=== PATIENT | female | born 1960 | race Caucasian/White ===

== ENCOUNTER 2021-12-28 01:47 | Emergency (ER) | payer OTHER ==
[~2021-12-28] VITALS: Ht 162.6 cm; Wt 88.5 kg
[2021-12-28 02:26] LABS: BASOPHILS ABSOLUTE AUTO 0.02 K/mm3 (0.00-0.23); BASOPHILS PERCENT AUTO 0 % (0-2); EOSINOPHILS PERCENT AUTO 0 % (0-6); Hematocrit 39.5 % (33.0-51.0); Hemoglobin 13.4 g/dL (11.5-16.0); IMMATURE GRAN ABSOLUTE AUTO 0.06 K/mm3 (0.00-0.10); IMMATURE GRAN PERCENT AUTO 0 % (0-1); LYMPHOCYTES ABSOLUTE AUTO 1.38 K/mm3 (0.84-5.20); LYMPHOCYTES PERCENT AUTO 10 % (21-46); MONOCYTES ABSOLUTE AUTO 0.31 K/mm3 (0.16-1.47); MONOCYTES PERCENT AUTO 2 % (4-13); Mean Corpuscular HGB 31.4 pg (26.0-34.0); Mean Corpuscular HGB Conc 33.9 g/dL (31.5-36.5); Mean Corpuscular Volume 93 fL (80-100); NEUTROPHILS ABSOLUTE AUTO 11.94 K/mm3 (1.96-9.15); NEUTROPHILS PERCENT AUTO 87 % (41-73); Platelet Count 279 K/mm3 (150-400); RDW Coefficient Variation 13.2 % (11.7-14.2); Red Blood Cell Count 4.27 M/mm3 (3.80-5.20); White Blood Cell Count 13.71 K/mm3 (4.00-11.30)
[2021-12-28] MEDS ORDERED: FOLI1 PO (02:40)
[2021-12-28] MEDS ORDERED: EPINEPHRIN0.3 MG/0.1 (02:41)
[2021-12-28] MEDS ORDERED: EZETIMIBE10 M6 PO (02:41)
[2021-12-28] MEDS ORDERED: NITROGLYCERIN0.4 M3 (02:41)
[2021-12-28] MEDS ORDERED: BUDESONIDE-FO10.2 G2 (02:41)
[2021-12-28] MEDS ORDERED: VITAMIN D310 MC4 PO (02:41)
[2021-12-28] MEDS ORDERED: METOPROLOL SUCC25 MG PO (02:42)
[2021-12-28] MEDS ORDERED: METFORMIN HCL500 M2 PO (02:42)
[2021-12-28] MEDS ORDERED: METFORMIN HCL500 M3 PO (02:42)
[2021-12-28] MEDS ORDERED: PRED20 PO (02:42)
[2021-12-28] MEDS ORDERED: BENADRYL25 M1 PO (02:42)
[2021-12-28] MEDS ORDERED: LORA10ER PO (02:43)
[2021-12-28] MEDS ORDERED: Atarax10 MG PO (02:43)
[2021-12-28] MEDS ORDERED: FAMO20 (02:43)
[2021-12-28 02:44] LABS: Albumin, Blood 3.6 g/dL (3.4-5.0); Albumin/Globulin Ratio 0.9 (0.8-1.8); Bilirubin, Total 0.2 mg/dL (0.1-1.0); Bun/Creatinine Ratio 21.5 (12.0-20.0); Calcium, Blood 9.3 mg/dL (8.5-10.1); Creatinine, Blood 0.84 mg/dL (0.40-1.00); Globulin, Blood 4.1 g/dL (2.2-4.0); Magnesium, Blood 1.8 mg/dL (1.6-2.4); Potassium, Blood 4.8 mmol/L (3.5-5.5); Total Protein, Blood 7.7 g/dL (6.4-8.2)
[2021-12-28] MEDS ORDERED: Norco 5-325 Ta1 EACH PO (02:44)
== END 2021-12-28 05:05 | disposition home or self-care (01) ==
LOC: ER 01:47
PROVIDERS: Student in an Organized Health Care Education/Training Program
DX: E11.65 Type 2 diabetes mellitus with hyperglycemia (principal); I10 Essential (primary) hypertension; G35 Multiple sclerosis; J44.9 Chronic obstructive pulmonary disease, unspecified; Z88.0 Allergy status to penicillin; Z88.8 Allergy status to other drugs, medicaments and biological substances
CPT/HCPCS: 80053; 82947; 83735; 85025; 93005; 93010; J1815; J7030